=== PATIENT | male | born 1950 | race Caucasian/White ===

== ENCOUNTER 2021-02-18 16:02 | Emergency (ER) | payer MEDICARE ==
--- NOTE | 2021-02-18 17:38 | EDM.PDOC ---
ED HPI GENERAL MEDICAL PROBLEM - General Chief Complaint: Back Pain or Injury Stated Complaint: BACK PAIN Time Seen by Provider: 02/18/21 17:30 Source of Information: Reports: Patient, RN Notes Reviewed History Limitations: Reports: No Limitations - History of Present Illness INITIAL COMMENTS - FREE TEXT/NARRATIVE: Patient is a 70-year-old male who presents to the ER for evaluation of his back pain. Patient states he has had previous back surgery and has quite a bit of hardware from his mid back all the way down into his pelvis. States that he did take quite a fall, onto a skid steer track here a while ago, he has a wound on his leg that he has been doctoring for but he is complaining mainly of increased back pain, and was curious as to if he had not disrupted or broken any of the hardware in his back. Patient states that the pain is somewhat manageable, and he is concerned just to make sure that he has not broken any hardware. His primary care provider is in [place]. States that he does attend pain management clinic and did get a few shots and this did seem to help. - Related Data Allergies Allergy/AdvReac Type Severity Reaction Status Date / Time No Known Allergies Allergy Verified 02/18/21 16:53 Past Medical History Cardiovascular History: Reports: High Cholesterol, Hypertension Respiratory History: Reports: Pneumonia, Recurrent, Sleep Apnea Other Respiratory History: doesn't use his bi-pap Psychiatric History: Reports: Anxiety, Dementia Other Psychiatric History: seeing a counselor at [facility] Endocrine/Metabolic History: Reports: Diabetes, Type II Other Endocrine/Metabolic History: does not check blood sugars at home; does not have a diet plan - Infectious Disease History Infectious Disease History: Reports: Chicken Pox, Measles, Mumps - Past Surgical History GI Surgical History: Reports: Appendectomy, Colonoscopy Musculoskeletal Surgical History: Reports: Other (See Below) Other Musculoskeletal Surgeries/Procedures:: back surgery Mar 2020 and has screws and rods Social & Family History - Tobacco Use Tobacco Use Status *Q: Never Tobacco User - Caffeine Use Caffeine Use: Reports: Soda - Recreational Drug Use Recreational Drug Use: No ED ROS GENERAL - Review of Systems Review Of Systems: Comprehensive ROS is negative, except as noted in HPI. ED EXAM,LOWER BACK PAIN/INJURY - Physical Exam Exam: See Below Exam Limited By: No Limitations General Appearance: Alert, WD/WN, No Apparent Distress Respiratory/Chest: No Respiratory Distress, Lungs Clear, Normal Breath Sounds, No Accessory Muscle Use, Chest Non-Tender Cardiovascular: Normal Peripheral Pulses, Regular Rate, Rhythm, No Edema Extremities: Normal Inspection, Normal Capillary Refill Neurological: Alert, Normal Mood/Affect, Normal Dorsiflexion, Normal Plantar Flexion, No Motor/Sensory Deficits Psychiatric: Normal Affect, Normal Mood Skin Exam: Warm, Dry, Intact, Normal Color, No Rash Course - Vital Signs Last Recorded V/S: Last Vital Signs Temp 97.4 F 02/18/21 16:48 Pulse 59 L 02/18/21 16:48 Resp 20 02/18/21 16:48 BP 165/99 H 02/18/21 16:48 Pulse Ox 95 02/18/21 16:48 - Re-Assessments/Exams Free Text/Narrative Re-Assessment/Exam: 02/18/21 17:37 Patient presents to the ER for evaluation of his back pain. We will go ahead and get some x-rays for further evaluation to make sure that he is not disrupted any hardware. 02/18/21 18:17 The patient's x-rays have been performed, and demonstrate no fracture of any orthopedic hardware. We will go ahead and discharge the patient home at this time. Departure - Departure Time of Disposition: 18:18 Disposition: Home, Self-Care 01 Condition: Good Clinical Impression: Back pain Qualifiers: Back pain location: back pain in unspecified location Chronicity: chronic Back pain laterality: right Qualified Code(s): M54.9 - Dorsalgia, unspecified; G89.29 - Other chronic pain - Discharge Information *PRESCRIPTION DRUG MONITORING PROGRAM REVIEWED*: No *COPY OF PRESCRIPTION DRUG MONITORING REPORT IN PATIENT EDWARD: No Instructions: Managing Chronic Back Pain Forms: ED Department Discharge Additional Instructions: You have been evaluated in the ED for your back pain. Your x-ray demonstrated no acute fracture of any of your hardware identified on your x-rays. Please use ice as tolerated to the affected area. Please try to elevate the affected area to relieve swelling. You may take Tylenol 500 mg or ibuprofen 600mg q6 hrs for pain relief. Please do so until you have a tolerable level of pain with activity. Do not exceed 4000mg Tylenol or 3200mg ibuprofen in a 24 hour time period. Please follow-up with your regular provider for re-evaluation, if your injury is not feeling much better in roughly 7 to 10 days time. Please return to ED if your symptoms should change or worsen. Sepsis Event Note (ED) - Focused Exam Vital Signs: Vital Signs Temp Pulse Resp BP Pulse Ox 02/18/21 16:48 97.4 F 59 L 20 165/99 H 95
--- NOTE | 2021-02-18 18:08 | CR ---
Lumbar spine: AP, lateral and coned-down lateral views centered to the lumbosacral junction were obtained. Comparison: Prior lumbar spine study of 06/01/13. Diffuse fixation rods are seen between approximately T10 inferiorly through S2. Trans-pedicle screws are noted from L2-L5. Intervertebral disc fixations are seen at L1-2 and L3-4. Additional intervertebral disc fixation is seen at L4-5. No abnormal subluxation is seen. No acute abnormality is seen. Impression: 1. Extensive surgery. 2. Nothing acute is appreciated on 3-view lumbar spine study. Diagnostic code #2
--- NOTE | 2021-02-18 18:08 | CR ---
Pelvis: AP view of the pelvis was obtained. Comparison: No prior pelvis study is available. Joint space narrowing is seen within the superior right hip. Joint space within the left hip is preserved. Prior lumbar spine surgery is noted. Bony structures are somewhat osteopenic. No acute fracture or other abnormality is appreciated. Impression: 1. Mild degenerative change and prior lumbar spine surgery. 2. Nothing acute is appreciated on AP pelvis study. Diagnostic code #2
== END 2021-02-18 18:27 | disposition home or self-care (01) ==
LOC: SUPCPDRO 16:02 → JD.ED 16:02
DX: G89.29 Other chronic pain (principal); M54.6 Pain in thoracic spine; E11.9 Type 2 diabetes mellitus without complications; I10 Essential (primary) hypertension
CPT/HCPCS: 72100; 72100-26; 72170; 72170-26; 99283-25

== ENCOUNTER 2023-08-18 16:27 | Emergency (ER) | payer MEDICARE, OTHER ==
[2023-08-18] MEDS: Sodium Chloride 0.9% 10 ML Syringe FLUSH PRN (17:30)
[2023-08-18 17:33] LABS: BASOPHILS ABSOLUTE AUTO 0.1 K/mm3 (0.0-0.2); BASOPHILS PERCENT AUTO 0.7 % (0.0-1.0); EOSINOPHILS ABSOLUTE AUTO 0.1 K/mm3 (0.0-0.4); EOSINOPHILS PERCENT AUTO 1.5 % (0.0-6.0); HEMATOCRIT 35.7 % (42.0-52.0); HEMOGLOBIN 12.5 gm/dl (14.0-18.0); IMMATURE GRAN ABSOLUTE AUTO 0.04 K/mm3 (0.00-0.05); IMMATURE GRAN PERCENT AUTO 0.5 % (0.0-0.4); LYMPHOCYTES ABSOLUTE AUTO 0.9 K/mm3 (1.0-4.8); LYMPHOCYTES PERCENT AUTO 12.6 % (24.0-44.0); MEAN CORPUSCULAR HEMOGLOBIN 31.6 pg (28.0-32.0); MEAN CORPUSCULAR VOLUME 90.4 fl (83.0-99.0); MEAN PLATELET VOLUME 10.2 fl (9.4-12.4); MONOCYTES ABSOLUTE AUTO 0.5 K/mm3 (0.0-0.8); MONOCYTES PERCENT AUTO 6.3 % (0.0-8.0); NEUTROPHILS ABSOLUTE AUTO 5.7 K/mm3 (1.8-7.7); NEUTROPHILS PERCENT AUTO 78.4 % (41.0-71.0); PLATELET COUNT,PLT 199 K/mm3 (150-400); RED BLOOD CELL COUNT 3.95 M/mm3 (4.52-5.90); WHITE BLOOD CELL COUNT,WBC 7.31 K/mm3 (3.9-11.3)
[2023-08-18 17:47] LABS: APPEARANCE,URINE CLEAR (Clear); BILIRUBIN,URINE NEGATIVE (Negative); COLOR,URINE YELLOW (Yellow); GLUCOSE,URINE NEGATIVE (Negative); KETONES,URINE NEGATIVE (Negative); LEUKOCYTE ESTERASE,URINE NEGATIVE (Negative); NITRITE,URINE NEGATIVE (Negative); OCCULT BLOOD,URINE NEGATIVE (Negative); PH,URINE 7.5 (5.0-8.0); PROTEIN,URINE NEGATIVE (Negative); UROBILINOGEN,URINE 0.2 (0.2-1.0)
[2023-08-18 17:58] LABS: A/G RATIO 1.3 (1-2); ANION GAP 14.5 (5-15); BILIRUBIN TOTAL 0.6 mg/dL (0.2-1.0); BUN/CREATININE RATIO 16.5 (14-18); CALCIUM 9.2 mg/dL (8.5-10.1); CREATININE 1.7 mg/dL (0.7-1.3); EST CRCL DRUG DOSING (CG) 43.75 mL/min; MAGNESIUM 2.1 mg/dL (1.8-2.4); POTASSIUM,K 4.5 mEq/L (3.5-5.1)
[2023-08-18 18:16] LABS: BACTERIA,URINE OCCASIONAL /hpf (FEW); MUCUS,URINE NOT SEEN /hpf (FEW); RBC,URINE 0-5 /hpf (0-5); SQUAMOUS EPITHELIAL CELLS,UR NOT SEEN /hpf (0-5); WBC,URINE 0-5 /hpf (0-5)
[2023-08-18] MEDS: Acetaminophen/HYDROcodone 325-10 MG Tab PO ONE (19:02)
== END 2023-08-18 18:57 | disposition home or self-care (01) ==
LOC: JD.ED 16:27
DX: B34.9 Viral infection, unspecified (principal); I25.10 Atherosclerotic heart disease of native coronary artery without angina pectoris; I10 Essential (primary) hypertension; E78.00 Pure hypercholesterolemia, unspecified; E11.9 Type 2 diabetes mellitus without complications; Z79.82 Long term (current) use of aspirin; Z79.02 Long term (current) use of antithrombotics/antiplatelets; Z79.899 Other long term (current) drug therapy
CPT/HCPCS: 36415; 80053; 81001; 83735; 84484; 85025; 85379; 93005; 99285; A9270; J3490

== ENCOUNTER 2024-04-04 16:53 | Emergency (ER) | payer MEDICARE, OTHER ==
[2024-04-04 17:50] LABS: BASOPHILS PERCENT AUTO 0.5 % (0.0-1.0); EOSINOPHILS PERCENT AUTO 0.5 % (0.0-6.0); HEMATOCRIT 38.5 % (42.0-52.0); HEMOGLOBIN 13.2 gm/dl (14.0-18.0); IMMATURE GRAN ABSOLUTE AUTO 0.06 K/mm3 (0.00-0.05); IMMATURE GRAN PERCENT AUTO 0.8 % (0.0-0.4); LYMPHOCYTES PERCENT AUTO 13.2 % (24.0-44.0); MEAN CORPUSCULAR HEMOGLOBIN 30.3 pg (28.0-32.0); MEAN CORPUSCULAR HGB CONC 34.3 g/dl (32.0-36.0); MEAN CORPUSCULAR VOLUME 88.5 fl (83.0-99.0); MEAN PLATELET VOLUME 9.9 fl (9.4-12.4); MONOCYTES ABSOLUTE AUTO 0.6 K/mm3 (0.0-0.8); MONOCYTES PERCENT AUTO 7.1 % (0.0-8.0); NEUTROPHILS ABSOLUTE AUTO 6.1 K/mm3 (1.8-7.7); NEUTROPHILS PERCENT AUTO 77.9 % (41.0-71.0); PLATELET COUNT,PLT 197 K/mm3 (150-400); RED BLOOD CELL COUNT 4.35 M/mm3 (4.52-5.90); WHITE BLOOD CELL COUNT,WBC 7.87 K/mm3 (3.9-11.3)
[2024-04-04] MEDS: Sodium Chloride 0.9% 10 ML Syringe FLUSH PRN (18:06)
[2024-04-04 18:47] LABS: A/G RATIO 1.3 (1-2); ALANINE AMINOTRANSFERASE,ALT 31 U/L (16-63); ALKALINE PHOSPHATASE 45 U/L (46-116); ANION GAP 11.9 (5-15); ASPARTATE AMNIOTRANSFERASE,AST 14 U/L (15-37); BILIRUBIN TOTAL 0.5 mg/dL (0.2-1.0); BLOOD UREA NITROGEN,BUN 30 mg/dL (7-18); BUN/CREATININE RATIO 27.3 (14-18); C-REACTIVE PROTEIN <0.05 mg/dL (<0.30); CALCIUM 9.5 mg/dL (8.5-10.1); CARBON DIOXIDE,CO2 27 mEq/L (21-32); CHLORIDE,CL 101 mEq/L (98-107); CREATININE 1.1 mg/dL (0.7-1.3); EST CRCL DRUG DOSING (CG) 66.63 mL/min; ESTIMATED GFR 71 mL/min (>60); GLUCOSE RANDOM 107 mg/dL (70-99); MAGNESIUM 2.1 mg/dL (1.8-2.4); POTASSIUM,K 3.9 mEq/L (3.5-5.1); PROTEIN TOTAL,TP 7.2 g/dl (6.4-8.2); SODIUM,NA 136 mEq/L (136-145); TROPONIN I HIGH SENSITIVITY 17 pg/mL (<=76); TSH 1.725 uIU/mL (0.358-3.74)
[2024-04-04 18:58] LABS: LACTIC ACID 1.2 mmol/L (0.4-2.0)
== END 2024-04-04 19:29 | disposition home or self-care (01) ==
LOC: JD.ED 16:53
DX: I10 Essential (primary) hypertension (principal); R00.9 Unspecified abnormalities of heart beat; G47.33 Obstructive sleep apnea (adult) (pediatric); E78.00 Pure hypercholesterolemia, unspecified; E11.9 Type 2 diabetes mellitus without complications; Z79.82 Long term (current) use of aspirin; Z79.899 Other long term (current) drug therapy; Z79.02 Long term (current) use of antithrombotics/antiplatelets; Z79.84 Long term (current) use of oral hypoglycemic drugs
CPT/HCPCS: 36415; 71045; 80053; 83605; 83735; 83880; 84443; 84484; 85025; 86140; 93005; 99284; J3490; 93010

== ENCOUNTER 2024-06-05 08:15 | Emergency (ER) | payer MEDICARE, OTHER ==
[2024-06-05] MEDS: LORazepam 2 MG/ML SDV IVPUSH ONE (09:02)
[2024-06-05] MEDS: Sodium Chloride 0.9% 10 ML Syringe FLUSH PRN (09:04)
[2024-06-05 09:12] LABS: BASOPHILS PERCENT AUTO 0.5 % (0.0-1.0); EOSINOPHILS ABSOLUTE AUTO 0.1 K/mm3 (0.0-0.4); EOSINOPHILS PERCENT AUTO 1.5 % (0.0-6.0); HEMOGLOBIN 12.3 gm/dl (14.0-18.0); IMMATURE GRAN ABSOLUTE AUTO 0.05 K/mm3 (0.00-0.05); IMMATURE GRAN PERCENT AUTO 0.8 % (0.0-0.4); LYMPHOCYTES PERCENT AUTO 16.7 % (24.0-44.0); MEAN CORPUSCULAR HEMOGLOBIN 30.5 pg (28.0-32.0); MEAN CORPUSCULAR HGB CONC 33.2 g/dl (32.0-36.0); MEAN PLATELET VOLUME 10.1 fl (9.4-12.4); MONOCYTES ABSOLUTE AUTO 0.5 K/mm3 (0.0-0.8); MONOCYTES PERCENT AUTO 8.2 % (0.0-8.0); NEUTROPHILS ABSOLUTE AUTO 4.4 K/mm3 (1.8-7.7); NEUTROPHILS PERCENT AUTO 72.3 % (41.0-71.0); PLATELET COUNT,PLT 195 K/mm3 (150-400); RED BLOOD CELL COUNT 4.03 M/mm3 (4.52-5.90); WHITE BLOOD CELL COUNT,WBC 6.11 K/mm3 (3.9-11.3)
[2024-06-05 09:14] LABS: MEAN CORPUSCULAR VOLUME 91.8 fl (83.0-99.0)
[2024-06-05 09:31] LABS: A/G RATIO 1.3 (1-2); ANION GAP 13.6 (5-15); BILIRUBIN TOTAL 0.8 mg/dL (0.2-1.0); BUN/CREATININE RATIO 20.7 (14-18); CALCIUM 9.1 mg/dL (8.5-10.1); CREATININE 1.4 mg/dL (0.7-1.3); EST CRCL DRUG DOSING (CG) 52.35 mL/min; POTASSIUM,K 4.6 mEq/L (3.5-5.1); PROTEIN TOTAL,TP 7.2 g/dl (6.4-8.2); TSH 2.86 uIU/mL (0.358-3.74)
== END 2024-06-05 12:15 | disposition home or self-care (01) ==
LOC: JD.ED 08:15
DX: R06.02 Shortness of breath (principal); R09.81 Nasal congestion; I10 Essential (primary) hypertension; E78.00 Pure hypercholesterolemia, unspecified; E11.9 Type 2 diabetes mellitus without complications; Z86.79 Personal history of other diseases of the circulatory system; Z90.49 Acquired absence of other specified parts of digestive tract; Z96.659 Presence of unspecified artificial knee joint; Z79.82 Long term (current) use of aspirin; Z79.84 Long term (current) use of oral hypoglycemic drugs; Z79.899 Other long term (current) drug therapy
CPT/HCPCS: 36415; 71045; 80053; 83735; 83880; 84443; 84484; 85025; 87428; 93005; 96374; 99285; J2060; 93010; 99284

== ENCOUNTER 2024-06-26 22:56 | Emergency (ER) | payer MEDICARE, OTHER ==
[2024-06-27 00:16] LABS: BASOPHILS PERCENT AUTO 0.5 % (0.0-1.0); EOSINOPHILS ABSOLUTE AUTO 0.1 K/mm3 (0.0-0.4); EOSINOPHILS PERCENT AUTO 1.4 % (0.0-6.0); HEMATOCRIT 33.6 % (42.0-52.0); HEMOGLOBIN 11.2 gm/dl (14.0-18.0); IMMATURE GRAN ABSOLUTE AUTO 0.05 K/mm3 (0.00-0.05); IMMATURE GRAN PERCENT AUTO 0.8 % (0.0-0.4); LYMPHOCYTES ABSOLUTE AUTO 0.8 K/mm3 (1.0-4.8); MEAN CORPUSCULAR HEMOGLOBIN 29.9 pg (28.0-32.0); MEAN CORPUSCULAR HGB CONC 33.3 g/dl (32.0-36.0); MEAN CORPUSCULAR VOLUME 89.8 fl (83.0-99.0); MEAN PLATELET VOLUME 9.2 fl (9.4-12.4); MONOCYTES ABSOLUTE AUTO 0.6 K/mm3 (0.0-0.8); MONOCYTES PERCENT AUTO 9.3 % (0.0-8.0); NEUTROPHILS ABSOLUTE AUTO 4.9 K/mm3 (1.8-7.7); PLATELET COUNT,PLT 203 K/mm3 (150-400); RED BLOOD CELL COUNT 3.74 M/mm3 (4.52-5.90); WHITE BLOOD CELL COUNT,WBC 6.48 K/mm3 (3.9-11.3)
[2024-06-27 00:46] LABS: A/G RATIO 1.1 (1-2); ALBUMIN 3.7 g/dl (3.4-5.0); ANION GAP 11.6 (5-15); BILIRUBIN TOTAL 0.4 mg/dL (0.2-1.0); CALCIUM 9.4 mg/dL (8.5-10.1); CREATININE 1.3 mg/dL (0.7-1.3); EST CRCL DRUG DOSING (CG) 56.38 mL/min; MAGNESIUM 2.1 mg/dL (1.8-2.4); POTASSIUM,K 4.6 mEq/L (3.5-5.1)
[2024-06-27] MEDS: LORazepam 1 MG Tab PO ONE ×2 (01:19→10:20)
[2024-06-27 01:22] LABS: BASE EXCESS ARTERIAL 4.7 (-2-2.0); BICARBONATE,ARTERIAL 29.2 meq/L (22.0-26.0); O2 SATURATION ARTERIAL 92.9 % (96.0-97.0)
[2024-06-27] MEDS: LORazepam 2 MG/ML SDV IVPUSH ONE ×2 (03:40→09:40)
[2024-06-27] MEDS: Meloxicam 7.5 MG Tab PO SCH (09:03)
[2024-06-27] MEDS: DULoxetine 30 MG Cap PO SCH (09:03)
[2024-06-27] MEDS: Cefdinir 300 MG Cap PO SCH (09:03)
[2024-06-27] MEDS: Verapamil 120 MG Cap.ER PO SCH (09:03)
[2024-06-27] MEDS: Clopidogrel 75 MG Tab PO ONE (09:06)
[2024-06-27] MEDS: metFORMIN 500 MG Tab PO SCH (09:06)
[2024-06-27] MEDS: Spironolactone 25 MG Tab PO SCH (09:06)
[2024-06-27] MEDS: Fenofibrate Nanocrystallized 145 MG Tab PO SCH (09:06)
[2024-06-27] MEDS: atorvaSTATin 40 MG Tab PO SCH (09:06)
[2024-06-27] MEDS: Furosemide 40 MG Tab PO SCH (09:06)
[2024-06-27] MEDS: guaiFENesin 600 MG Tab.ER PO SCH (09:06)
[2024-06-27] MEDS: Metoprolol Succinate 25 MG Tab.ER PO SCH (09:06)
[2024-06-27] MEDS: Doxycycline Monohydrate 100 MG Cap PO SCH (09:06)
[2024-06-27] MEDS: Folic Acid 1 MG Tab PO SCH (09:06)
[2024-06-27] MEDS: Aspirin 81 MG Tab.Chew PO SCH (09:07)
[2024-06-27] MEDS: Cholecalciferol (Vitamin D3) 5,000 UNIT Cap PO SCH (09:07)
[2024-06-27] MEDS: Benzonatate 100 MG Cap PO SCH (09:10)
[2024-06-27] MEDS: Acetaminophen/HYDROcodone 325-5 MG Tab PO ONE (09:40)
[2024-06-27] MEDS ORDERED: Doxazosin 4 MG Tab PO SCH (21:00)
[2024-06-27] MEDS ORDERED: Thiamine 100 MG Tab PO SCH (21:00)
[2024-06-28] MEDS ORDERED: Ferrous Sulfate 324 MG Tab.EC PO SCH (07:00)
== END 2024-06-27 15:00 | disposition home or self-care (01) ==
LOC: JD.ED 22:56
DX: J18.9 Pneumonia, unspecified organism (principal); I10 Essential (primary) hypertension; E78.00 Pure hypercholesterolemia, unspecified; E11.9 Type 2 diabetes mellitus without complications; Z79.82 Long term (current) use of aspirin; Z79.899 Other long term (current) drug therapy; Z79.84 Long term (current) use of oral hypoglycemic drugs; Z79.02 Long term (current) use of antithrombotics/antiplatelets
CPT/HCPCS: 36415; 36600; 70450; 71250; 80053; 82550; 82803; 83735; 83880; 84484; 85025; 93005; 99285; A9270; 93010; J2060